=== PATIENT | female | born 1990 | race Caucasian/White ===

== ENCOUNTER 2020-11-02 08:45 | Inpatient (IN) | payer OTHER ==
[2020-11-02 09:44] VITALS: BMI 33.0
[2020-11-02] MEDS ORDERED: DINOPROSTONE 10 MG VAGINAL SUPPOSITORY VG ONE (10:00)
[2020-11-02] MEDS: DEXTROSE 5%-LACTATED RINGERS 1,000 ML IV SCH ×2 (10:00→16:20)
[2020-11-02 10:13] LABS: BASO % 0.4 % (0-2.0); EOS % 0.8 % (0-4.5); HEMATOCRIT 31.8 % (32.4-45.2); HEMOGLOBIN 10.5 GM/dL (10.7-15.3); LYMPH % 19.1 % (8-40); MEAN CELL VOLUME 84.7 fl (80-96); MONO % 9.6 % (3.8-10.2); NEUT % 70.1 % (42.8-82.8); PLATELET COUNT 171 10^3/uL (134-434); RBC 3.75 M/mm3 (3.60-5.2); RDW 14.6 % (11.6-15.6); WHITE BLOOD COUNT 8.7 K/mm3 (4.0-10.0)
[2020-11-02 10:18] LABS: INR 0.92 (0.83-1.09); PROTHROMBIN TIME (PATIENT) 11.2 SEC (9.7-13.0)
[2020-11-02 10:22] LABS: ACTIVATED PTT 25.3 SECONDS (25.2-36.5)
[2020-11-02 10:33] LABS: CALCIUM 8.2 mg/dL (8.5-10.1)
[2020-11-02 10:37] LABS: CREATININE 0.7 mg/dL (0.55-1.3)
[2020-11-02 12:45] LABS: HIV INTERPRETATION NEGATIVE (NEGATIVE)
[2020-11-02] MEDS ORDERED: OXYTOCIN 30 UNITS in 0.9% NS 30 UNIT/500 ML INFUS.BAG IVPB SCH (23:45)
[2020-11-03] MEDS ORDERED: OXYTOCIN 30 UNITS in 0.9% NS 30 UNIT/500 ML INFUS.BAG IVPB ONE (00:36)
[2020-11-03] MEDS ORDERED: PCA PUMP NR ONE (01:49)
[2020-11-03] MEDS ORDERED: FENTANYL/BUPIVACAINE/NS/PF - PCEA - 50 ML DISP.SYRIN EP ONE ×3 (01:50→10:28)
[2020-11-03] MEDS ORDERED: BUPIVACAINE HCL/PF 0.25% (2.5MG/ML) 10 ML VIAL ONE (02:09)
[2020-11-03] MEDS: FENTANYL/BUPIVACAINE/NS/PF - PCEA - 50 ML DISP.SYRIN EP SCH ×3 (02:25→10:35)
[2020-11-03] MEDS ORDERED: NALOXONE HCL 0.4 MG/ML VIAL IVPUSH PRN (02:32)
[2020-11-03] MEDS ORDERED: OXYTOCIN 20 UNITS in 0.9% NS 20 UNIT/1,000 ML INFUS.BAG IV ONE (12:46)
[2020-11-03] MEDS ORDERED: LIDOCAINE HCL 1% PRESERVATIVE FREE - 30ML VIAL ONE (14:19)
[2020-11-03] MEDS ORDERED: BISACODYL 10 MG SUPP.RECT RC PRN (15:14)
[2020-11-03] MEDS ORDERED: BENZOCAINE 20% 57 GM BOTTLE TP PRN (15:14)
[2020-11-03] MEDS ORDERED: METHYLERGONOVINE MALEATE 0.2 MG/1 ML AMP IM PRN (15:14)
[2020-11-03] MEDS ORDERED: BENZOCAINE 28 GM HEMORRHOIDAL OINTMENT TP PRN (15:14)
[2020-11-03] MEDS ORDERED: WITCH HAZEL 50% (TUCKS) 40 PAD/JAR PAD TP PRN (15:14)
[2020-11-03] MEDS ORDERED: OXYTOCIN 20 UNITS in 0.9% NS 20 UNIT/1,000 ML INFUS.BAG IV SCH (15:15)
[2020-11-03] MEDS ORDERED: IBUPROFEN 600 MG TABLET (FP) PO ONE (15:32)
[2020-11-03] MEDS: IBUPROFEN 600 MG TABLET (FP) PO PRN ×2 (15:35→20:05)
[2020-11-03] MEDS: ACETAMINOPHEN 325 MG TABLET (FP) PO PRN ×2 (16:50→20:05)
[2020-11-04] MEDS: IBUPROFEN 600 MG TABLET (FP) PO PRN ×2 (01:37→22:49)
[2020-11-04] MEDS: ACETAMINOPHEN 325 MG TABLET (FP) PO PRN ×2 (01:37→22:48)
[2020-11-04] MEDS: FERROUS SO4 325 MG TABLET (FP) PO SCH ×3 (07:18→18:39)
[2020-11-04 08:31] LABS: BASO % 0.2 % (0-2.0); EOS % 0.4 % (0-4.5); HEMATOCRIT 27.3 % (32.4-45.2); HEMOGLOBIN 8.7 GM/dL (10.7-15.3); LYMPH % 10.1 % (8-40); MCH 27.3 pg (25.7-33.7); MEAN CELL VOLUME 85.3 fl (80-96); MEAN PLT VOLUME 8.6 fl (7.5-11.1); MONO % 7.3 % (3.8-10.2); PLATELET COUNT 135 10^3/uL (134-434); RDW 14.4 % (11.6-15.6); WHITE BLOOD COUNT 12.4 K/mm3 (4.0-10.0)
[2020-11-04] MEDS: PRENATAL VITAMINS W/ FOLIC ACID TABLET (FP) PO SCH (10:20)
[2020-11-04 11:06] LABS: PLATELET ESTIMATE DECREASED
[2020-11-04] MEDS ORDERED: SENNOSIDES/DOCUSATE COMBO (SENNA PLUS) TABLET (UD) PO PRN (22:00)
[2020-11-05] MEDS: FERROUS SO4 325 MG TABLET (FP) PO SCH (08:35)
[2020-11-05] MEDS: PRENATAL VITAMINS W/ FOLIC ACID TABLET (FP) PO SCH (09:09)
[2020-11-05] MEDS: ACETAMINOPHEN 325 MG TABLET (FP) PO PRN (09:09)
[2020-11-05] MEDS: IBUPROFEN 600 MG TABLET (FP) PO PRN (09:10)
[2020-11-05 12:40] VITALS: BP 125/80; PULSE 83; TEMP 97.6
== END 2020-11-05 13:30 | disposition home or self-care (01) | DRG 560 ==
LOC: JLDR 08:45 → J3W 11-03 16:20
PROVIDERS: ADMIT Obstetrics & Gynecology; ATTEND Obstetrics & Gynecology
PROC: 3E0P7VZ Introduction of Hormone into Female Reproductive, Via Natural or Artificial Opening (ICD-10-PCS; 2020-11-02)
PROC: 10E0XZZ Delivery of Products of Conception, External Approach (ICD-10-PCS; principal; 2020-11-03)
PROC: 0W8NXZZ Division of Female Perineum, External Approach (ICD-10-PCS; 2020-11-03)
DX: O48.0 Post-term pregnancy (principal); O99.214 Obesity complicating childbirth; E66.9 Obesity, unspecified; O70.1 Second degree perineal laceration during delivery; O99.344 Other mental disorders complicating childbirth; F90.9 Attention-deficit hyperactivity disorder, unspecified type; O99.03 Anemia complicating the puerperium; D64.9 Anemia, unspecified; Z3A.41 41 weeks gestation of pregnancy; Z37.0 Single live birth
CPT/HCPCS: 36415; 59409; 80048; 85025; 85610; 85730; 86780; 86850; 86900; 86901; 87389; C9803; U0003; U0005